=== PATIENT | female | born 1975 | race Caucasian/White ===

== ENCOUNTER 2021-02-04 06:19 | Day surgery (SDC) | payer OTHER ==
[~2021-02-04] VITALS: Ht 165.1 cm; Wt 57.6 kg
[~2021-02-04 06:19] MED LIST: ALPRAZOLAM2 MG PO; ARIPIPRAZOLE5 MG PO; ARMOUR THYROID30 M1 PO; LAMOTRIGINE200 MG PO; LEVONO-E ESTRA1 EACH PO; PROPRANOLOL 20M20 M1; ZALEPLON 10 MG10 M1 PO; ZOLPIDEM TARTRA10 MG PO
[2021-02-04 07:05] VITALS: BP 125/83
[2021-02-04 10:40] VITALS: BP 125/83
--- NOTE | 2021-02-05 10:36 | O ---
[facility] [place] [address] OPERATIVE REPORT Name: MICKEY ABRAHAM Room #: [facility] [place]..#: [id number] Admission: 02/04/21 Attend Phys: Sandip Gupta MD Discharge: 02/04/21 Date of : 75 Report #: [id number] THIS REPORT FOR: cc: ANNE RIOS APRN Physician not on staff Sandip Gupta MD ~ DATE OF SERVICE: 02/04/2021 PREOPERATIVE DIAGNOSES: 1. Right leg and thigh pain. 2. Right hip labral tear. 3. Right hip femoral acetabular impingement. POSTOPERATIVE DIAGNOSES: 1. Right leg and thigh pain. 2. Right hip labral tear. 3. Right hip femoral acetabular impingement. PROCEDURES PERFORMED: 1. Right hip arthroscopic labral repair. 2. Right hip arthroscopic Cam osteochondroplasty. COMPLICATIONS: None. DRAINS: None. SPECIMENS: None. ANESTHESIA: General with regional. FINDINGS: 1. Fully detached anterior labral tear repair with [place] CinchLock suture anchor x3. 2. Small focal Cam deformity, treated with Cam osteoplasty. 3. Capsular repair with #2 Vicryl x4. 4. Intact cartilage. HISTORY: The patient is a 45-year-old female with a complicated history of bilateral thigh pain. She had an extensive workup with Physiatry as well as Orthopedics. With their collaborative approach and in terms of attempting to diagnose and differentiate the etiology for her pain, she had a series of treatments performed without sufficient relief, but then did have an image-guided intraarticular corticosteroid injection, which provided excellent pain relief. Unfortunately, the pain relief was temporary. She was referred for orthopedic evaluation at this point with a known diagnosis of a detached anterior labral tear of the right hip. We had a consultation, and the physical [address] [place] [address] OPERATIVE REPORT Name: MICKEY ABRAHAM Room #: [facility] [place]#: [id number] Admission: 02/04/21 Attend Phys: Sandip Gupta MD Discharge: 02/04/21 Date of : 75 Report #: [id number] examination of the right hip in determining her to have a femoral acetabular impingement reproduced her thigh pain and the imaging was consistent as well with mild femoral acetabular impingement with an alpha angle of 53 degrees on the x-ray. She had a Tonnis grade of 0 with maintained joint space and no evidence of the acetabular side impingement. The MRI showed anterior labral tear and she was, therefore, ultimately indicated for surgical treatment. We had several discussions preoperatively discussing her thigh pain, specifically within the context of typical presentation for femoral acetabular impingement, labral tears and hip pain in general. She was understanding that there was a possibility that she would not have complete or satisfactory pain relief with treatment of her hip surgery given her atypical presentation. Together, we thought that this was the best option now, especially in the context of her clear pathology and favorable response to the intra-articular injection by the physiatry team. Risks, benefits, alternatives and indications of surgery were discussed with her in detail. Risks include, but not limited to, pain, bleeding, infection, injury to nerves or blood vessels, persistent pain despite surgical intervention, failure of any repairs, progression of preexisting chondral injury, stiffness, need for further surgery as well as complications related to anesthesia. Despite the risks, she wished to proceed. The patient did have pain that was affecting activities of daily living and failed conservative measures including rest, activity modifications, physical therapy, oral medicines and the injections as stated. She had physical examination, suggestive of femoral acetabular impingement as well as some periodic giveaway symptoms when her thigh pain was more severe. DESCRIPTION OF PROCEDURE: After right lower extremity was correctly identified in the preoperative holding area as the operative extremity, the patient was taken to the operating room after placement of single shot regional nerve block. General anesthesia was induced without complication. She was padded appropriately. Prophylactic antibiotics were administered in appropriate time. A C-arm was brought in to identify the extent of the Cam deformity assessing the femoral head and neck junction. The right hip was then prepped and draped in standard sterile fashion. Timeout procedure performed. Traction was applied. Standard anterolateral viewing portal was established followed by anteromedial working portal under fluoroscopic and arthroscopic visualization. There was capsular erythema and synovitis, which will be the indication for continuous passive motion machine usage postoperatively in order to reduce the risk of scarring and adhesions, as these can be reasons for reoperation in this patient population. A transverse capsulotomy was performed. Diagnostic arthroscopy revealed the above findings. Overall, the articular cartilage looked very normal, but there was clearly a detached anterior labral tear with a full-thickness tear more anteriorly and then the labrum was displacing into the joint itself. Capsule was reflected off the dorsal side of the labrum and the acetabular rim was prepared by gently retracting the labrum [facility] [address] [place] [address] OPERATIVE REPORT Name: MICKEY ABRAHAM Room #: [facility]#: [id number] Admission: 02/04/21 Attend Phys: Sandip Gupta MD Discharge: 02/04/21 Date of : 75 Report #: [id number] A fresh bleeding surface was created on the acetabular rim to create a good bed for labral repair. [place] CinchLock suture anchors x3 were placed, the first 2 through the anteromedial portal working anteriorly to laterally and good anatomic reduction of the labrum was achieved with compression of the labrum against the acetabular rim. We then moved the scope anteriorly and made the working portal laterally and placed a third anchor through the lateral portal. At this point, the labrum was very stable to probing. There was no articular cartilage pathology requiring a chondroplasty. Traction was let down; hip was flexed up. Attention was turned towards the peripheral compartment. Transverse capsulotomy was extended down the neck in a T fashion to allow access to the entire Cam deformity. The bur was used to resect the Cam deformity and then the bony debris was lavaged out of the hip. The instruments were removed. C-arm was brought in to assess the resection, identified some additional bone that needed to be resected, placed the instruments back in the hip, completed the Cam osteoplasty, removed the instruments, took final x-rays to confirm that satisfactory Cam osteoplasty had been completed. Final x-rays were taken. Instruments were placed back into the hip. Bony debris was once again lavaged out the hip and then the T-shaped capsulotomy was closed with total of four #2 Vicryl sutures. Instruments were removed. Portal sites were closed. Sterile dressings were applied. The patient was awakened from anesthesia and taken to recovery room in stable condition. No complications. All counts were correct. <ELECTRONICALLY SIGNED> By: Sandip Gupta MD 02/05/21 1036 1030 1142 Sandip Gupta MD /kyle
== END 2021-02-04 11:00 | disposition home or self-care (01) ==
LOC: OR 06:19 → TBA 06:19 → OR 10:23 → TBA 11:00 → OR 13:34
PROVIDERS: ATTEND Orthopaedic Surgery Sports Medicine
DX: M25.551 Pain in right hip (principal); S73.101A Unspecified sprain of right hip, initial encounter; F32.9 Major depressive disorder, single episode, unspecified; F41.9 Anxiety disorder, unspecified; E03.9 Hypothyroidism, unspecified; G47.00 Insomnia, unspecified; Z98.890 Other specified postprocedural states; Z79.899 Other long term (current) drug therapy; Z20.822 Contact with and (suspected) exposure to COVID-19; X58.XXXA Exposure to other specified factors, initial encounter; Y93.89 Activity, other specified; Y92.89 Other specified places as the place of occurrence of the external cause; Y99.8 Other external cause status
CPT/HCPCS: 50010; 50101; 50386; 51538; 52304; 52313; 56524; 56527; 57092; 57103; 58273; 58274; 58557; 58558; 58559; 58560; 58561; 58562; 58563; 58564; 58589; 59024; 62110; 62900; 64041; 70005

== ENCOUNTER → 2021-05-19 | Day surgery (SDC) | payer OTHER ==
[2021-05-19 11:58] VITALS: BP 125/71
[2021-05-19 17:01] VITALS: BP 125/71
--- NOTE | 2021-05-20 11:51 | O ---
[address] [address] OPERATIVE REPORT Name: MICKEY ABRAHAM Room #: REG [facility]..#: [id number] Admission: 05/19/21 Attend Phys: Sandip Gupta MD Discharge: Date of : 75 Report #: [id number] THIS REPORT FOR: cc: ANNE RIOS APRN Physician not on staff Sandip Gupta MD ~ DATE OF SERVICE: 05/19/2021 SERVICE: Orthopedics. FACILITY: [facility]. SURGEON: Sandip Gupta MD ROLLING UP MACHINE OPERATOR: Nubia Stafford NP INDICATIONS FOR ROLLING UP MACHINE OPERATOR: Extremity positioning, suture management, arthroscope management, assistance with repair. PREOPERATIVE DIAGNOSES: 1. Left hip pain. 2. Left hip femoral acetabular impingement. 3. Left hip acetabular labral tear. POSTOPERATIVE DIAGNOSES: 1. Left hip pain. 2. Left hip femoral acetabular impingement. 3. Left hip acetabular labral tear. PROCEDURES: 1. Left hip arthroscopic labral repair. 2. Left hip arthroscopic Cam osteochondroplasty. 3. Left hip arthroscopic subspine decompression. COMPLICATIONS: None. DRAINS: None. SPECIMENS: None. ANESTHESIA: General with regional. FINDINGS: 1. Full-thickness anterior labral tear repair with [place] CinchLock suture anchor x 2. 2. Focal Cam deformity with maximal alpha angle approximately 55 degrees, [address] [address] OPERATIVE REPORT Name: MICKEY ABRAHAM Room #: REG [facility]#: [id number] Admission: 05/19/21 Attend Phys: Sandip Gupta MD Discharge: Date of : 75 Report #: [id number] treated with Cam osteoplasty. 3. Focal anterior inferior iliac spine causing extraarticular subspine impingement, requiring additional capsular dissection with cautery and shaver as well as subspine decompression with the bur. 4. Capsule repaired with #2 Vicryl x 4. HISTORY: The patient is a 46-year-old female with a history of bilateral hip femoral acetabular impingement and symptomatic labral tears. She is approximately 5 months post right hip arthroscopic treatment of her labral tear and had excellent pain relief and wished to have similar procedure performed on the left side. Imaging demonstrated a small Cam deformity, which was confirmed intraoperatively to have a maximal alpha angle approximately 55 degrees. She had a crossover sign and a focal prominent anterior inferior iliac spine causing extraarticular subspine impingement. She had a full-thickness anterior labral tear on the MRI arthrogram. She had intact cartilage and the Tonnis grade is 0, indicating no arthritis. She has pursued extensive conservative measures including approximately 6 months of physical therapy, rest, activity modifications, and oral medications. She had an intra-articular hip injection, which provided excellent temporary pain relief. Unfortunately, her pain continued and she was therefore indicated for surgical treatment. Risks, benefits, alternatives and indications were discussed with her in detail. Risks include but not limited to pain, bleeding, infection, injuring nerves or blood vessels, persistent pain despite surgical intervention, failure of any repairs, progression of preexisting chondral injury, stiffness, need for further surgery as well as complications related to anesthesia. Despite the risks, she wished to proceed. PROCEDURE IN DETAIL: After left lower extremity was correctly identified as the operative extremity, the patient underwent regional nerve block. She was then taken to the operating room where general anesthesia was induced without complication. She was padded appropriately. Prophylactic antibiotics were administered at appropriate time. C-arm was used to identify the extent of the Cam deformity and map out the proximal femoral head and neck anatomy and then the left hip was prepped and draped in standard sterile fashion. Timeout procedure was performed. Traction was applied. Standard anterolateral viewing portal was established followed by anteromedial working portal. Diagnostic arthroscopy revealed the above findings. There was capsular erythema and synovitis, which will be the indication for continuous passive motion machine usage postoperatively in order to reduce the risk of scarring and adhesions that these can be reasons for reoperation in this patient population. Transverse capsulotomy was performed. There was an obvious full-thickness anterior labral tear with associated chondral wave sign more laterally. The capsule was reflected off the dorsal side of the labrum in order to obtain access to the acetabular-sided pathology. [address] [address] OPERATIVE REPORT Name: MICKEY ABRAHAM Room #: [facility].R.#: [id number] Admission: 05/19/21 Attend Phys: Sandip Gupta MD Discharge: Date of : 75 Report #: [id number] There were several small chondral bodies floating within the hip approximately 4 total on the order of 5-6 mm x 3 mm or so. These were resected with a shaver. Otherwise, the articular cartilage was quite healthy and intact. The subspine region was dissected with the cautery and the shaver, capsule was preserved. The bur was then used to perform a subspine decompression in standard fashion and then the bur was used to abrade the acetabular rim to create a fresh decorticated surface for labral repair. We then proceeded with labral repair. Total of 2 [place] CinchLock suture anchors were utilized with cerclage sutures placed providing good compression of the labrum against the acetabular rim in the anatomic position with good compression at the rim. The labrum was stable as was the chondral wave sign more laterally to probing at this point. The shaver was used to debride and perform a limited chondroplasty at the chondral labral junction where the tear occurred as there was some softening here and superficial fraying. After this was completed, traction was let down, hip was flexed up. Attention was turned towards the peripheral compartment. The transverse capsulotomy was extended down the neck in a T fashion allowing access to the Cam deformity. The bur was used to perform a Cam osteoplasty in standard fashion. I removed the instruments, brought C-arm in, assessed the resection, identified some additional bone distally, placed instruments back in the hip, completed the Cam osteoplasty and then removed the instruments and took final x-rays once happy with the appearance of the Cam resection. With the instruments placed back into the hip, the bony debris was lavaged out of the hip and then T-shaped capsulotomy was closed with total of four #2 Vicryl sutures. Instruments were removed. Portal sites were closed. Sterile dressing was applied. The patient was awakened from anesthesia and taken to recovery room in stable condition. There were no complications. All counts were recorded as correct. <ELECTRONICALLY SIGNED> By: Sandip Gupta MD 05/20/21 1151 1607 1730 Sandip Gupta MD /nt
== END | disposition home or self-care (01) ==
LOC: OR 08:50
PROVIDERS: ATTEND Orthopaedic Surgery Sports Medicine
DX: M25.552 Pain in left hip (principal); M25.852 Other specified joint disorders, left hip; S73.192A Other sprain of left hip, initial encounter; E03.9 Hypothyroidism, unspecified; F32.9 Major depressive disorder, single episode, unspecified; F41.9 Anxiety disorder, unspecified; G47.00 Insomnia, unspecified; Z98.890 Other specified postprocedural states; Z79.899 Other long term (current) drug therapy; Z20.822 Contact with and (suspected) exposure to COVID-19; X58.XXXA Exposure to other specified factors, initial encounter; Y93.89 Activity, other specified; Y92.89 Other specified places as the place of occurrence of the external cause; Y99.8 Other external cause status
CPT/HCPCS: 50010; 50101; 50386; 51320; 51538; 52001; 52282; 52304; 56524; 56527; 57092; 57103; 58273; 58274; 58557; 58558; 58559; 58560; 58561; 58562; 58563; 58564; 58608; 59172; 62110; 62900; 64039; 70005